=== PATIENT | female | born 1950 | race African-American/Black ===

== ENCOUNTER 2023-06-07 04:55 | Inpatient (IN) | payer BC, MEDICARE ==
[2023-06-07] MEDS ORDERED: Atropine Sulfate 1 mg/10 ml Syringe ONE (05:17)
[2023-06-07] MEDS ORDERED: DOBUTamine 500 mg/250 ml 250 ML ONE ×2 (05:28→08:03)
[2023-06-07 05:30] LABS: #Eosinphils 0.1 thou/uL (0.0-0.7); #Monocytes 0.7 thou/uL (0.11-0.59); #Neutrophils 4.5 thou/uL (1.40-6.50); %Basophils 0.5 % (0.0-1.0); %Eosinophils 1.4 % (0.0-10.0); %Lymphocytes 28.2 % (21.0-51.0); %Monocytes 8.8 % (0.0-10.0); %Neutrophils 60.8 % (42.0-75.0); Hematocrit 38.5 % (36.0-47.0); Hemoglobin 11.9 g/dL (12.0-16.0); Mean Corpuscular HGB CONC 30.9 g/dL (32.0-36.0); Mean Corpuscular Volume 100.3 fl (78.0-98.0); Mean Platelet Volume 10.5 fL (7.4-10.4); Platelet Count 257 10x3/uL (130-400); RBC Distribution Width 14.2 % (11.5-14.5); Red Blood Cell (RBC) Count 3.84 mill/uL (4.20-5.40); White Blood Cell (WBC) Count 7.4 10x3/uL (4.8-10.8)
[2023-06-07 06:00] LABS: ALT (SGPT) 17 U/L (8-55); AST (SGOT) 15 U/L (5-34); Alkaline Phosphatase 93 U/L (40-110); Anion Gap 19 mmol/L (10-20); BUN (Urea Nitrogen) 30 mg/dL (9.8-20.1); Bilirubin, Total 1.1 mg/dL (0.2-1.2); Calc. Creatinine Clearance 0 mL/min (70-130); Calcium 9.2 mg/dL (7.8-10.44); Carbon Dioxide 19 mmol/L (23-31); Chloride 108 mmol/L (98-107); Estimated GFR 33; Globulin 3.8 g/dL (2.4-3.5); Glucose 166 mg/dL (83-110); Lipase 31 U/L (8-78); Magnesium 1.4 mg/dL (1.6-2.6); Potassium 3.4 mmol/L (3.5-5.1); Protein, Total 7.8 g/dL (5.8-8.1); Sodium 143 mmol/L (136-145)
[2023-06-07 06:03] LABS: Troponin I 0.021 ng/mL (< 0.028)
[2023-06-07 06:07] LABS: Critical Call Chem-Lactate NUR.NKE@0605
[2023-06-07] MEDS ORDERED: DOPamine 400 MG/D5W 250 ML 250 ML ONE (06:59)
[2023-06-07] MEDS ORDERED: Furosemide 40 MG (4 mL) VIAL ONE (07:08)
[2023-06-07] MEDS ORDERED: Piperacillin/Tazobactam 3.375 GM VIAL ONE (07:08)
[2023-06-07] MEDS ORDERED: Sodium Chloride 0.9% 100 ML ONE (07:08)
[2023-06-07 07:27] LABS: Actual Bicarbonate (HCO3a) 17.8 mEq/L (22-28); Analyzer IN Cardio ER; Base Excess (BEa) -7.4 mEq/L (-2.0 to +3.0); CO2 Tension 34.6 mmHg (35.0-45.0); Calcium, Ionized (arterial) 1.17 mmol/L (1.12-1.30); Carboxyhemoglobin (COHb) 1.2 gm% (0.0-3.0); Hematocrit-ABG 35 % (36.0-47.0); Hemoglobin (Hb) 11.9 g/dL (12.0-16.0); O2 Tension (PaO2), arterial 70.6 mmHg (> 70.0); pH, Arterial 7.328 (7.35-7.45)
[2023-06-07 07:29] LABS: Puncture Site LRA
[2023-06-07 07:52] LABS: SARS-CoV-2 NAA Rapid Test Not Detected (NotDetected)
[2023-06-07] MEDS ORDERED: Glucagon 1 MG/ML KIT IM PRN (08:14)
[2023-06-07] MEDS ORDERED: Dextrose 50% Abboject 50 ML SYRINGE SLOW IVP PRN (08:14)
[2023-06-07] MEDS ORDERED: HumaLOG 300 UNITS/3 ML VIAL SC PRN ×2 (08:14)
[2023-06-07] MEDS ORDERED: Dextrose 5% in Water 1,000 ML IV PRN (08:14)
[2023-06-07] MEDS ORDERED: Enoxaparin 40 MG (0.4 mL) SYRINGE SC SCH (09:00)
[2023-06-07] MEDS ORDERED: Potassium Chloride 40 MEQ in Premix 1 BAG IVPB SCH (09:15)
[2023-06-07 09:16] LABS: Troponin I 0.038 ng/mL (< 0.028)
[2023-06-07] MEDS ORDERED: Lidocaine 1% (PF) 30 ML VIAL ONE (09:30)
[2023-06-07] MEDS ORDERED: Albumin 25% 25 GM (100 mL) BOT IVPB SCH ×2 (09:30→12:15)
[2023-06-07] MEDS ORDERED: Vancomycin (BATCH) 2 GM in Premix 1 BAG IVPB SCH (09:45)
[2023-06-07] MEDS ORDERED: Etomidate 40 MG (20 mL) VIAL ONE (10:08)
[2023-06-07] MEDS: DOBUTamine 500 mg/250 ml 250 ML IVPB SCH ×3 (11:00→23:07)
[2023-06-07] MEDS: DOPamine 400 MG/D5W 250 ML 250 ML IVPB SCH ×3 (11:00→20:31)
[2023-06-07 11:25] LABS: INR-International Normal Ratio 1.5; Prothrombin Time 17.8 sec (12.0-14.7)
[2023-06-07 11:37] LABS: Troponin I 0.062 ng/mL (< 0.028)
[2023-06-07] MEDS: Potassium Chloride 20 MEQ in Premix 1 BAG IVPB SCH ×2 (12:11→14:06)
[2023-06-07] MEDS: Ondansetron ODT 4 MG TAB PO PRN ×2 (12:23→19:47)
[2023-06-07] MEDS ORDERED: Magnesium 2 GM/50 ML(in water) 2 GM in Premix 1 BAG IVPB SCH (12:30)
[2023-06-07] MEDS ORDERED: Cefepime 2 GM in Sodium Chloride 0.9% 100 ML IVPB SCH (13:00)
[2023-06-07] MEDS ORDERED: Iopamidol 370 76% 100 ML VIAL ONE (13:36)
[2023-06-08] MEDS: DOPamine 400 MG/D5W 250 ML 250 ML IVPB SCH ×2 (03:32→11:24)
[2023-06-08 03:37] LABS: Bacteria/HPF None Seen HPF (None Seen); Bilirubin Negative (Negative); Blood, Urine 1+ (Negative); Clarity Extra Turbid (Clear); Glucose, Urine (Dipstick) 50 mg/dL (Negative); Ketone, Urine Negative (Negative); Leukocyte 25 Leu/uL (Negative); Nitrite Negative (Negative); Protein, Urine (Dipstick) 200 mg/dL (Neg-Trace); RBC/HPF 0-3 HPF (0-3); Specific Gravity, Urine 1.025 (1.002-1.036); Squamous Epithelial 0-3 HPF (0-3); UA Pathologist Review? Unknown Crystals; Unclassified Crystals 4+ HPF (None Seen); Urobilinogen Normal mg/dL (Less than 2); WBC/HPF 21-50 HPF (0-3); pH, Urine 5.5 (5.0-9.0)
[2023-06-08] MEDS ORDERED: Cefepime 2 GM in Sodium Chloride 0.9% 100 ML IVPB SCH (05:00)
[2023-06-08 05:04] LABS: #Basophils 0.1 thou/uL (0.0-0.2); #Eosinphils 0.1 thou/uL (0.0-0.7); #Monocytes 1.1 thou/uL (0.11-0.59); #Neutrophils 6.5 thou/uL (1.40-6.50); %Basophils 0.6 % (0.0-1.0); %Eosinophils 0.6 % (0.0-10.0); %Monocytes 12.6 % (0.0-10.0); %Neutrophils 72.9 % (42.0-75.0); Hematocrit 34.6 % (36.0-47.0); Hemoglobin 10.6 g/dL (12.0-16.0); Mean Corpuscular HGB CONC 30.6 g/dL (32.0-36.0); Mean Corpuscular Hemoglobin 30.6 pg (27.0-31.0); Mean Platelet Volume 10.2 fL (7.4-10.4); Platelet Count 202 10x3/uL (130-400); RBC Distribution Width 14.2 % (11.5-14.5); Red Blood Cell (RBC) Count 3.46 mill/uL (4.20-5.40); White Blood Cell (WBC) Count 8.9 10x3/uL (4.8-10.8)
[2023-06-08 05:30] LABS: Anion Gap 15 mmol/L (10-20); BUN (Urea Nitrogen) 33 mg/dL (9.8-20.1); Calc. Creatinine Clearance 51 mL/min (70-130); Calcium 8.6 mg/dL (7.8-10.44); Carbon Dioxide 18 mmol/L (23-31); Chloride 110 mmol/L (98-107); Estimated GFR 19; Glucose 129 mg/dL (83-110); Potassium 4.4 mmol/L (3.5-5.1); Sodium 139 mmol/L (136-145)
[2023-06-08] MEDS: DOBUTamine 500 mg/250 ml 250 ML IVPB SCH (07:03)
[2023-06-08] MEDS ORDERED: Vancomycin Dose by Levels Sliding Scale (Wt > 99) FS SCH (07:45)
[2023-06-08] MEDS: Ondansetron ODT 4 MG TAB PO PRN (08:50)
[2023-06-08] MEDS ORDERED: Enoxaparin 30 MG (0.3 mL) SYRINGE SC SCH (09:30)
[2023-06-08] MEDS ORDERED: HumaLOG 300 UNITS/3 ML VIAL SC PRN ×2 (10:49→10:50)
[2023-06-08 14:02] LABS: Vancomycin, Random 12.2 ug/mL (See Comment)
[2023-06-08] MEDS ORDERED: Vancomycin 1 GM in Premix 1 BAG IVPB SCH ×2 (14:45→16:00)
[2023-06-08] MEDS: Cefepime 1 GM in Sodium Chloride 0.9% 100 ML IVPB SCH (18:20)
[2023-06-09] MEDS: Cefepime 1 GM in Sodium Chloride 0.9% 100 ML IVPB SCH ×2 (04:50→16:14)
[2023-06-09] MEDS: Levothyroxine 100 MCG SDV IVP SCH (05:02)
[2023-06-09] MEDS ORDERED: Enoxaparin 30 MG (0.3 mL) SYRINGE SC SCH (09:00)
[2023-06-09] MEDS ORDERED: Lidocaine 1% (PF) 30 ML VIAL ONE (09:45)
[2023-06-09] MEDS ORDERED: Gentamicin 80 MG/2 ML VIAL ONE (09:45)
[2023-06-09] MEDS ORDERED: CEFAZOLIN 2 GM VIAL ONE (09:45)
[2023-06-09 10:01] LABS: Anion Gap 13 mmol/L (10-20); BUN (Urea Nitrogen) 37 mg/dL (9.8-20.1); Calc. Creatinine Clearance 40 mL/min (70-130); Calcium 8.2 mg/dL (7.8-10.44); Carbon Dioxide 18 mmol/L (23-31); Chloride 112 mmol/L (98-107); Estimated GFR 14; Glucose 85 mg/dL (83-110); Potassium 4.7 mmol/L (3.5-5.1); Sodium 138 mmol/L (136-145)
[2023-06-09] MEDS ORDERED: Midazolam HCl 2 mg/2 ml Vial ONE (11:50)
[2023-06-09] MEDS ORDERED: NOREPINEPHRINE 8 MG/250 ML-D5W 250 ML ONE (11:50)
[2023-06-09] MEDS ORDERED: Propofol 1,000 MG/100 ML VIAL IV ONE ×2 (11:51→12:01)
[2023-06-09] MEDS ORDERED: fentaNYL 50 mcg/mL 1 mL Vial ONE (11:51)
[2023-06-09] MEDS ORDERED: Ketamine In 0.9 % NaCl 50 MG/5 ML SYRINGE ONE (12:12)
[2023-06-09 15:26] LABS: Vancomycin, Random 17.1 ug/mL (See Comment)
[2023-06-09] MEDS: Lisinopril 5 MG TAB PO SCH (16:14)
[2023-06-09] MEDS: Amlodipine 10 MG TAB PO SCH (16:14)
[2023-06-09] MEDS ORDERED: Vancomycin HCl 750 MG in Sodium Chloride 0.9% 250 ML 250 ML IVPB SCH (16:30)
[2023-06-09] MEDS ORDERED: Cephalexin 250 MG CAP PO SCH (21:00)
[2023-06-10 04:10] LABS: Anion Gap 13 mmol/L (10-20); BUN (Urea Nitrogen) 41 mg/dL (9.8-20.1); Calc. Creatinine Clearance 37 mL/min (70-130); Calcium 8.3 mg/dL (7.8-10.44); Carbon Dioxide 18 mmol/L (23-31); Chloride 112 mmol/L (98-107); Estimated GFR 13; Glucose 68 mg/dL (83-110); Potassium 4.6 mmol/L (3.5-5.1); Sodium 138 mmol/L (136-145)
[2023-06-10] MEDS: Cefepime 1 GM in Sodium Chloride 0.9% 100 ML IVPB SCH ×2 (04:25→16:03)
[2023-06-10] MEDS: Levothyroxine 100 MCG SDV IVP SCH (06:33)
[2023-06-10] MEDS ORDERED: Levothyroxine 175 MCG TAB PO SCH (10:15)
[2023-06-10] MEDS: Lisinopril 5 MG TAB PO SCH (16:02)
[2023-06-10] MEDS: Amlodipine 10 MG TAB PO SCH (16:02)
[2023-06-10 17:07] LABS: Vancomycin, Random 20.4 ug/mL (See Comment)
[2023-06-10] MEDS ORDERED: Vancomycin HCl 750 MG in Sodium Chloride 0.9% 250 ML 250 ML IVPB SCH (20:00)
[2023-06-11 04:20] LABS: #Eosinphils 0.2 thou/uL (0.0-0.7); #Neutrophils 5.2 thou/uL (1.40-6.50); %Basophils 0.4 % (0.0-1.0); %Eosinophils 2.7 % (0.0-10.0); %Lymphocytes 16.6 % (21.0-51.0); %Monocytes 13.4 % (0.0-10.0); %Neutrophils 66.5 % (42.0-75.0); Hematocrit 33.5 % (36.0-47.0); Hemoglobin 10.2 g/dL (12.0-16.0); Mean Corpuscular HGB CONC 30.4 g/dL (32.0-36.0); Mean Corpuscular Hemoglobin 30.4 pg (27.0-31.0); Mean Corpuscular Volume 99.7 fl (78.0-98.0); Mean Platelet Volume 10.4 fL (7.4-10.4); Platelet Count 190 10x3/uL (130-400); RBC Distribution Width 13.9 % (11.5-14.5); Red Blood Cell (RBC) Count 3.36 mill/uL (4.20-5.40); White Blood Cell (WBC) Count 7.8 10x3/uL (4.8-10.8)
[2023-06-11 04:33] LABS: Anion Gap 16 mmol/L (10-20); BUN (Urea Nitrogen) 40 mg/dL (9.8-20.1); Calc. Creatinine Clearance 37 mL/min (70-130); Calcium 8.2 mg/dL (7.8-10.44); Carbon Dioxide 16 mmol/L (23-31); Chloride 114 mmol/L (98-107); Estimated GFR 13; Glucose 85 mg/dL (83-110); Potassium 4.6 mmol/L (3.5-5.1); Sodium 141 mmol/L (136-145)
[2023-06-11] MEDS: Levothyroxine 175 MCG TAB PO SCH (05:20)
[2023-06-11] MEDS: Cefepime 1 GM in Sodium Chloride 0.9% 100 ML IVPB SCH (05:21)
[2023-06-11] MEDS: Lisinopril 5 MG TAB PO SCH (14:46)
[2023-06-11] MEDS: Amlodipine 10 MG TAB PO SCH (14:46)
[2023-06-11 19:35] LABS: Vancomycin, Random 20.2 ug/mL (See Comment)
[2023-06-11] MEDS: Cephalexin 250 MG CAP PO SCH (20:58)
[2023-06-11] MEDS ORDERED: Vancomycin HCl 750 MG in Sodium Chloride 0.9% 250 ML 250 ML IVPB SCH (21:30)
[2023-06-12] MEDS: Levothyroxine 175 MCG TAB PO SCH (05:49)
[2023-06-12 06:18] LABS: #Eosinphils 0.4 thou/uL (0.0-0.7); #Monocytes 0.8 thou/uL (0.11-0.59); #Neutrophils 5.3 thou/uL (1.40-6.50); %Basophils 0.3 % (0.0-1.0); %Eosinophils 4.6 % (0.0-10.0); %Monocytes 10.3 % (0.0-10.0); %Neutrophils 70.5 % (42.0-75.0); Hematocrit 33.6 % (36.0-47.0); Hemoglobin 10.4 g/dL (12.0-16.0); Mean Corpuscular Hemoglobin 30.7 pg (27.0-31.0); Mean Corpuscular Volume 99.1 fl (78.0-98.0); Mean Platelet Volume 10.5 fL (7.4-10.4); Platelet Count 194 10x3/uL (130-400); RBC Distribution Width 13.6 % (11.5-14.5); Red Blood Cell (RBC) Count 3.39 mill/uL (4.20-5.40); White Blood Cell (WBC) Count 7.6 10x3/uL (4.8-10.8)
[2023-06-12 06:38] LABS: ALT (SGPT) 10 U/L (8-55); AST (SGOT) 17 U/L (5-34); Albumin 2.9 g/dL (3.4-4.8); Alkaline Phosphatase 70 U/L (40-110); Anion Gap 14 mmol/L (10-20); BUN (Urea Nitrogen) 44 mg/dL (9.8-20.1); Bilirubin, Total 0.8 mg/dL (0.2-1.2); Calc. Creatinine Clearance 42 mL/min (70-130); Calcium 8.4 mg/dL (7.8-10.44); Carbon Dioxide 19 mmol/L (23-31); Chloride 115 mmol/L (98-107); Estimated GFR 15; Globulin 3.2 g/dL (2.4-3.5); Glucose 81 mg/dL (83-110); Potassium 4.9 mmol/L (3.5-5.1); Protein, Total 6.1 g/dL (5.8-8.1); Sodium 143 mmol/L (136-145)
[2023-06-12] MEDS ORDERED: Carvedilol 6.25 MG TAB PO SCH (09:15)
[2023-06-12] MEDS: Cephalexin 250 MG CAP PO SCH ×2 (09:59→20:35)
[2023-06-12] MEDS ORDERED: Enoxaparin 40 MG (0.4 mL) SYRINGE SC SCH (10:30)
[2023-06-12] MEDS: Amlodipine 10 MG TAB PO SCH (15:53)
[2023-06-12] MEDS: Lisinopril 5 MG TAB PO SCH (15:53)
[2023-06-12] MEDS: Carvedilol 6.25 MG TAB PO SCH (17:15)
[2023-06-13] MEDS: Levothyroxine 175 MCG TAB PO SCH (05:18)
[2023-06-13 06:20] LABS: #Eosinphils 0.4 thou/uL (0.0-0.7); #Monocytes 0.6 thou/uL (0.11-0.59); #Neutrophils 6.4 thou/uL (1.40-6.50); %Basophils 0.1 % (0.0-1.0); %Eosinophils 4.7 % (0.0-10.0); %Lymphocytes 10.9 % (21.0-51.0); %Monocytes 7.6 % (0.0-10.0); %Neutrophils 76.5 % (42.0-75.0); Hematocrit 36.3 % (36.0-47.0); Hemoglobin 11.1 g/dL (12.0-16.0); Mean Corpuscular HGB CONC 30.6 g/dL (32.0-36.0); Mean Corpuscular Hemoglobin 30.6 pg (27.0-31.0); Mean Platelet Volume 10.3 fL (7.4-10.4); Platelet Count 211 10x3/uL (130-400); RBC Distribution Width 13.6 % (11.5-14.5); Red Blood Cell (RBC) Count 3.63 mill/uL (4.20-5.40); White Blood Cell (WBC) Count 8.3 10x3/uL (4.8-10.8)
[2023-06-13 06:36] LABS: ALT (SGPT) 19 U/L (8-55); AST (SGOT) 24 U/L (5-34); Albumin 3.2 g/dL (3.4-4.8); Alkaline Phosphatase 78 U/L (40-110); Anion Gap 12 mmol/L (10-20); BUN (Urea Nitrogen) 46 mg/dL (9.8-20.1); Bilirubin, Total 0.9 mg/dL (0.2-1.2); Calc. Creatinine Clearance 45 mL/min (70-130); Calcium 8.8 mg/dL (7.8-10.44); Carbon Dioxide 20 mmol/L (23-31); Chloride 115 mmol/L (98-107); Estimated GFR 16; Globulin 3.5 g/dL (2.4-3.5); Glucose 111 mg/dL (83-110); Potassium 4.5 mmol/L (3.5-5.1); Protein, Total 6.7 g/dL (5.8-8.1); Sodium 142 mmol/L (136-145)
[2023-06-13] MEDS: Carvedilol 6.25 MG TAB PO SCH ×2 (09:59→16:05)
[2023-06-13] MEDS: Cephalexin 250 MG CAP PO SCH ×2 (10:00→19:59)
[2023-06-13] MEDS: Amlodipine 10 MG TAB PO SCH (16:06)
[2023-06-13] MEDS: Lisinopril 5 MG TAB PO SCH (16:06)
[2023-06-13] MEDS: Heparin 5,000 UNITS/ML VIAL SC SCH (20:00)
[2023-06-14] MEDS: Levothyroxine 175 MCG TAB PO SCH (06:00)
[2023-06-14 06:36] LABS: #Eosinphils 0.5 thou/uL (0.0-0.7); #Monocytes 1.1 thou/uL (0.11-0.59); #Neutrophils 6.5 thou/uL (1.40-6.50); %Basophils 0.2 % (0.0-1.0); %Eosinophils 5.7 % (0.0-10.0); %Lymphocytes 12.5 % (21.0-51.0); %Monocytes 11.3 % (0.0-10.0); %Neutrophils 69.9 % (42.0-75.0); Hematocrit 34.7 % (36.0-47.0); Hemoglobin 10.5 g/dL (12.0-16.0); Mean Corpuscular HGB CONC 30.3 g/dL (32.0-36.0); Mean Corpuscular Hemoglobin 30.7 pg (27.0-31.0); Mean Corpuscular Volume 101.5 fl (78.0-98.0); Mean Platelet Volume 10.1 fL (7.4-10.4); Platelet Count 212 10x3/uL (130-400); RBC Distribution Width 13.6 % (11.5-14.5); Red Blood Cell (RBC) Count 3.42 mill/uL (4.20-5.40); White Blood Cell (WBC) Count 9.3 10x3/uL (4.8-10.8)
[2023-06-14 07:01] LABS: Anion Gap 14 mmol/L (10-20); BUN (Urea Nitrogen) 45 mg/dL (9.8-20.1); Calc. Creatinine Clearance 53 mL/min (70-130); Calcium 8.8 mg/dL (7.8-10.44); Carbon Dioxide 20 mmol/L (23-31); Chloride 113 mmol/L (98-107); Estimated GFR 20; Glucose 87 mg/dL (83-110); Sodium 142 mmol/L (136-145)
[2023-06-14] MEDS: Heparin 5,000 UNITS/ML VIAL SC SCH ×2 (08:40→20:43)
[2023-06-14] MEDS: Cephalexin 250 MG CAP PO SCH ×2 (08:41→20:42)
[2023-06-14] MEDS: Carvedilol 6.25 MG TAB PO SCH ×2 (08:41→16:09)
[2023-06-14 14:00] VITALS: BMI 60.5
[2023-06-14] MEDS: Amlodipine 10 MG TAB PO SCH (16:09)
[2023-06-14] MEDS: Lisinopril 5 MG TAB PO SCH (16:09)
[2023-06-14] MEDS ORDERED: Senokot S 8.6-50 MG TAB PO SCH (22:15)
[2023-06-14] MEDS: Acetaminophen/Codeine 30-300mg Tablet PO PRN (22:27)
[2023-06-15 04:29] LABS: Anion Gap 11 mmol/L (10-20); BUN (Urea Nitrogen) 44 mg/dL (9.8-20.1); Calc. Creatinine Clearance 61 mL/min (70-130); Carbon Dioxide 23 mmol/L (23-31); Chloride 112 mmol/L (98-107); Estimated GFR 23; Glucose 91 mg/dL (83-110); Potassium 5.2 mmol/L (3.5-5.1); Sodium 141 mmol/L (136-145)
[2023-06-15] MEDS: Acetaminophen/Codeine 30-300mg Tablet PO PRN ×2 (06:01→20:28)
[2023-06-15] MEDS: Levothyroxine 175 MCG TAB PO SCH (06:01)
[2023-06-15] MEDS: Heparin 5,000 UNITS/ML VIAL SC SCH ×2 (08:56→20:30)
[2023-06-15] MEDS: Cephalexin 250 MG CAP PO SCH ×2 (08:57→20:29)
[2023-06-15] MEDS: Senokot S 8.6-50 MG TAB PO SCH ×2 (08:57→20:29)
[2023-06-15] MEDS: Carvedilol 25 MG TAB PO SCH ×2 (08:57→16:44)
[2023-06-15] MEDS ORDERED: Lactulose 20 GM (30 mL) UDCUP PO SCH (12:00)
[2023-06-15] MEDS ORDERED: Polyethylene Glycol 3350 17 GM Packet PO SCH (12:00)
[2023-06-15] MEDS ORDERED: LOKELMA 10 GM PACKET PO SCH (12:30)
[2023-06-15 13:15] LABS: Anion Gap 12 mmol/L (10-20); BUN (Urea Nitrogen) 47 mg/dL (9.8-20.1); Calc. Creatinine Clearance 59 mL/min (70-130); Calcium 9.2 mg/dL (7.8-10.44); Carbon Dioxide 22 mmol/L (23-31); Chloride 113 mmol/L (98-107); Estimated GFR 22; Glucose 91 mg/dL (83-110); Potassium 5.2 mmol/L (3.5-5.1); Sodium 142 mmol/L (136-145)
[2023-06-15] MEDS: Amlodipine 10 MG TAB PO SCH (16:43)
[2023-06-15] MEDS: hydrALAZINE 25 MG TAB PO SCH ×2 (16:44→20:29)
[2023-06-15 18:37] LABS: Anion Gap 16 mmol/L (10-20); BUN (Urea Nitrogen) 46 mg/dL (9.8-20.1); Calc. Creatinine Clearance 58 mL/min (70-130); Calcium 9.1 mg/dL (7.8-10.44); Carbon Dioxide 20 mmol/L (23-31); Chloride 112 mmol/L (98-107); Estimated GFR 22; Glucose 109 mg/dL (83-110); Potassium 5.5 mmol/L (3.5-5.1); Sodium 142 mmol/L (136-145)
[2023-06-16] MEDS: Levothyroxine 175 MCG TAB PO SCH (05:01)
[2023-06-16] MEDS: Acetaminophen/Codeine 30-300mg Tablet PO PRN (05:01)
[2023-06-16 05:51] LABS: Hematocrit 33.4 % (36.0-47.0); Platelet Count 212 10x3/uL (130-400)
[2023-06-16 06:41] LABS: Anion Gap 12 mmol/L (10-20); BUN (Urea Nitrogen) 46 mg/dL (9.8-20.1); Calc. Creatinine Clearance 68 mL/min (70-130); Calcium 8.6 mg/dL (7.8-10.44); Carbon Dioxide 21 mmol/L (23-31); Chloride 115 mmol/L (98-107); Estimated GFR 26; Glucose 71 mg/dL (83-110); Potassium 5.2 mmol/L (3.5-5.1); Sodium 143 mmol/L (136-145)
[2023-06-16] MEDS ORDERED: Sodium Polystyrene Sulfonate 15 GM (60 mL) BOT PO SCH (08:15)
[2023-06-16] MEDS: hydrALAZINE 25 MG TAB PO SCH ×3 (10:07→21:52)
[2023-06-16] MEDS: Polyethylene Glycol 3350 17 GM Packet PO SCH (10:07)
[2023-06-16] MEDS: Senokot S 8.6-50 MG TAB PO SCH ×2 (10:07→22:02)
[2023-06-16] MEDS: Carvedilol 25 MG TAB PO SCH ×2 (10:07→16:40)
[2023-06-16] MEDS: Cephalexin 250 MG CAP PO SCH ×2 (10:07→21:52)
[2023-06-16] MEDS: Heparin 5,000 UNITS/ML VIAL SC SCH ×2 (10:08→21:45)
[2023-06-16 11:36] LABS: Anion Gap 14 mmol/L (10-20); BUN (Urea Nitrogen) 44 mg/dL (9.8-20.1); Calc. Creatinine Clearance 64 mL/min (70-130); Calcium 9.2 mg/dL (7.8-10.44); Carbon Dioxide 19 mmol/L (23-31); Chloride 112 mmol/L (98-107); Estimated GFR 25; Glucose 103 mg/dL (83-110); Potassium 5.3 mmol/L (3.5-5.1); Sodium 140 mmol/L (136-145)
[2023-06-16] MEDS: Amlodipine 10 MG TAB PO SCH (14:43)
[2023-06-16] MEDS: Sodium Bicarbonate Tab 325 MG TAB PO SCH ×2 (14:43→22:15)
[2023-06-16 18:39] LABS: Anion Gap 13 mmol/L (10-20); BUN (Urea Nitrogen) 46 mg/dL (9.8-20.1); Calc. Creatinine Clearance 63 mL/min (70-130); Calcium 8.8 mg/dL (7.8-10.44); Carbon Dioxide 22 mmol/L (23-31); Chloride 115 mmol/L (98-107); Estimated GFR 24; Glucose 117 mg/dL (83-110); Potassium 5.1 mmol/L (3.5-5.1); Sodium 145 mmol/L (136-145)
[2023-06-16] MEDS: Acetaminophen 325 MG TAB PO PRN (22:16)
[2023-06-17] MEDS: Levothyroxine 175 MCG TAB PO SCH (05:48)
[2023-06-17] MEDS: Acetaminophen 325 MG TAB PO PRN (05:48)
[2023-06-17 06:15] LABS: Anion Gap 9 mmol/L (10-20); BUN (Urea Nitrogen) 43 mg/dL (9.8-20.1); Calc. Creatinine Clearance 66 mL/min (70-130); Calcium 8.5 mg/dL (7.8-10.44); Carbon Dioxide 26 mmol/L (23-31); Chloride 114 mmol/L (98-107); Estimated GFR 27; Glucose 72 mg/dL (83-110); Potassium 5.1 mmol/L (3.5-5.1); Sodium 144 mmol/L (136-145)
[2023-06-17] MEDS: Sodium Bicarbonate Tab 325 MG TAB PO SCH ×2 (09:11→14:54)
[2023-06-17] MEDS: hydrALAZINE 25 MG TAB PO SCH ×2 (09:11→14:54)
[2023-06-17] MEDS: Carvedilol 25 MG TAB PO SCH (09:11)
[2023-06-17] MEDS: Senokot S 8.6-50 MG TAB PO SCH (09:11)
[2023-06-17] MEDS: Cephalexin 250 MG CAP PO SCH (09:11)
[2023-06-17] MEDS: Heparin 5,000 UNITS/ML VIAL SC SCH (09:11)
[2023-06-17] MEDS: Polyethylene Glycol 3350 17 GM Packet PO SCH (09:12)
[2023-06-17] MEDS: Amlodipine 10 MG TAB PO SCH (14:54)
[2023-06-17 15:25] VITALS: TEMP 97.6
[2023-06-17 16:32] VITALS: BP 141/66
== END 2023-06-17 17:53 | disposition home health service (06) | DRG 242 ==
LOC: ERS 04:55 → CCU 06:52 → 2NO 06-12 22:44
PROVIDERS: ADMIT Student in an Organized Health Care Education/Training Program; ATTEND Family Medicine
PROC: 5A1223Z Performance of Cardiac Pacing, Continuous (ICD-10-PCS; principal; 2023-06-07)
PROC: 4A033R1 Measurement of Arterial Saturation, Peripheral, Percutaneous Approach (ICD-10-PCS; 2023-06-07)
PROC: 30233J1 Transfusion of Nonautologous Serum Albumin into Peripheral Vein, Percutaneous Approach (ICD-10-PCS; 2023-06-07)
PROC: 5A09357 Assistance with Respiratory Ventilation, Less than 24 Consecutive Hours, Continuous Positive Airway Pressure (ICD-10-PCS; 2023-06-07)
PROC: 0JH606Z Insertion of Pacemaker, Dual Chamber into Chest Subcutaneous Tissue and Fascia, Open Approach (ICD-10-PCS; 2023-06-09)
PROC: 02H63JZ Insertion of Pacemaker Lead into Right Atrium, Percutaneous Approach (ICD-10-PCS; 2023-06-09)
PROC: 02PA3MZ Removal of Cardiac Lead from Heart, Percutaneous Approach (ICD-10-PCS; 2023-06-09)
PROC: 02HK3JZ Insertion of Pacemaker Lead into Right Ventricle, Percutaneous Approach (ICD-10-PCS; 2023-06-09)
PROC: 3E033XZ Introduction of Vasopressor into Peripheral Vein, Percutaneous Approach (ICD-10-PCS; 2023-06-09)
DX: I44.2 Atrioventricular block, complete (principal); I50.33 Acute on chronic diastolic (congestive) heart failure; N17.0 Acute kidney failure with tubular necrosis; E87.20 Acidosis, unspecified; Z68.43 Body mass index [BMI] 50.0-59.9, adult; N17.9 Acute kidney failure, unspecified; N39.0 Urinary tract infection, site not specified; N18.4 Chronic kidney disease, stage 4 (severe); I13.0 Hypertensive heart and chronic kidney disease with heart failure and stage 1 through stage 4 chronic kidney disease, or unspecified chronic kidney disease; E66.01 Morbid (severe) obesity due to excess calories; D63.8 Anemia in other chronic diseases classified elsewhere; G47.33 Obstructive sleep apnea (adult) (pediatric); E87.5 Hyperkalemia; R53.81 Other malaise; E11.22 Type 2 diabetes mellitus with diabetic chronic kidney disease; Z86.718 Personal history of other venous thrombosis and embolism; Z11.52 Encounter for screening for COVID-19
CPT/HCPCS: 33208; 33210; 36005; 36415; 36416; 36600; 71045; 75820; 80048; 80053; 80202; 80503; 81001; 82805; 83605; 83690; 83735; 83880; 84443; 84484; 85014; 85018; 85025; 85049; 85610; 87040; 87081; 87086; 93005; 93010; 93306; 93798; 93970; 94660; 96365; 96366; 96374; 96375; C1760; C1769; C1785; C1894; C1898; J0461; J0692; J1250; J1265; J1580; J1644; J1650; J1815; J1940; J2001; J2250; J2543; J2704; J3010; J3370; J3370-JW; J3475; J3480; J3490; J7050; P9047; Q0162; Q9967

== ENCOUNTER 2025-05-21 10:30 | Emergency (ER) | payer MEDICARE ==
[2025-05-21 11:45] LABS: #Basophils 0.03 10x3/uL (0.0-0.2); #Eosinophils Less than 0.03 10x3/uL (0.0-0.7); #Monocytes 0.65 10x3/uL (0.11-0.59); #Neutrophils 8.69 10x3/uL (1.40-6.50); %Basophils 0.3 % (0.0-1.0); %Eosinophils 0.0 % (0.0-10.0); %Lymphocytes 8.6 % (21.0-51.0); %Monocytes 6.3 % (0.0-10.0); %Neutrophils 84.4 % (42.0-75.0); Hematocrit 44.3 % (36.0-47.0); Hemoglobin 13.5 g/dL (12.0-16.0); Mean Corpuscular Hemoglobin 28.5 pg (27.0-31.0); Mean Corpuscular Volume 93.5 fL (78.0-98.0); Platelet Count 344 10x3/uL (130-400); Red Blood Cell (RBC) Count 4.74 mill/uL (4.20-5.40); White Blood Cell (WBC) Count 10.30 10x3/uL (4.8-10.8)
[2025-05-21 12:00] LABS: ALT (SGPT) 15 U/L (Less than 34); AST (SGOT) 20 U/L (11-34); Albumin 2.8 g/dL (3.1-4.5); Alkaline Phosphatase 148 U/L (40-110); Anion Gap 15 mmol/L (10-20); BUN (Urea Nitrogen) 22 mg/dL (9.8-20.1); Bilirubin, Total 0.8 mg/dL (0.3-1.2); Calc. Creatinine Clearance 0 mL/min (70-130); Calcium 9.5 mg/dL (7.8-10.44); Carbon Dioxide 22 mmol/L (23-31); Chloride 109 mmol/L (98-107); Globulin 4.9 g/dL (2.4-3.5); Glucose 191 mg/dL (83-110); Lipase 14 U/L (8-78); Potassium 4.2 mmol/L (3.5-5.1); Sodium 142 mmol/L (136-145)
[2025-05-21] MEDS ORDERED: Ondansetron PF 4 MG/2 ML Vial ONE (12:26)
== END 2025-05-21 18:07 | disposition home or self-care (01) ==
LOC: ERS 10:30
DX: R11.2 Nausea with vomiting, unspecified (principal); L89.109 Pressure ulcer of unspecified part of back, unspecified stage; K43.9 Ventral hernia without obstruction or gangrene; E11.22 Type 2 diabetes mellitus with diabetic chronic kidney disease; I13.0 Hypertensive heart and chronic kidney disease with heart failure and stage 1 through stage 4 chronic kidney disease, or unspecified chronic kidney disease; I50.9 Heart failure, unspecified; N18.9 Chronic kidney disease, unspecified; E66.9 Obesity, unspecified
CPT/HCPCS: 74177; 80053; 83690; 85025; 93005; 94760; J2272; J2405; 96361; 96374; 96375